=== PATIENT | male | born 1980 | race Caucasian/White ===

== ENCOUNTER 2016-11-17 07:42 | Emergency (ER) | payer BC ==
[2016-11-17 07:57] VITALS: BP 124/81
--- NOTE | 2016-11-17 08:30 | UC ---
Throat Pain/Nasal [place] HPI - HPI Summary HPI Summary: 36 male presents with complaints of sinus pressure and congestion for the past 2 weeks and feels as though it has been worsening. Also admits to some post nasal drip, coughing and headache. Patient states he feels as though the congestion is worse on the left side. He gets sinus infections often. Has not taken any medication other than Ibuprofen. Unknown if he has seasonal allergies. Denies PMHx. Denies fever/chills, sore throat, abdominal pain, nausea /vomiting and chest pain/congestion. - History of Current Complaint Chief Complaint: UCRespiratory Stated Complaint: SINUS COMPLAINT Time Seen by Provider: 11/17/16 08:16 Hx Obtained From: Patient Onset/Duration: Sudden Onset, Lasting Weeks - 2, Still Present, Worse Since Severity: Mild Pain Intensity: 2 Pain Scale Used: 0-10 Numeric Cough: Nonproductive Associated Signs & Symptoms: Positive: Sinus Discomfort, Nasal Discharge - Allergies/Home Medications Allergies/Adverse Reactions: Allergies Allergy/AdvReac Type Severity Reaction Status Date / Time Morphine Allergy Difficulty Verified 11/17/16 07:57 Breathing PMH/Surg Hx/FS Hx/Imm Hx - Additional Past Medical History Additional PMH: Denies HTN, diabetes and asthma. No known PMHx. Other History Of: Negative For: HIV, Hepatitis B, Hepatitis C - Surgical History Surgical History: Yes Surgery Procedure, Year, and Place: Right leg fracture - Family History Known Family History: Positive: None - Social History Alcohol Use: Weekly Substance Use Type: None Smoking Status (MU): Never Smoked Tobacco - Immunization History Most Recent Tetanus Shot: 2008 Vaccination Up to Date: Yes Review of Systems Constitutional: Negative Skin: Negative Eyes: Negative ENT: Nasal Discharge, Other - sinus pressure/congestion Respiratory: Cough Cardiovascular: Negative Gastrointestinal: Negative Neurological: Headache All Other Systems Reviewed And Are Negative: Yes Physical Exam Triage Information Reviewed: Yes Appearance: Well-Appearing - sounds congested upon speaking, No Pain Distress, Well-Nourished Vital Signs: Initial Vital Signs Temp 98.1 F 11/17/16 07:53 Pulse 70 11/17/16 07:53 Resp 14 11/17/16 07:53 BP 124/81 11/17/16 07:53 Pulse Ox 99 11/17/16 07:53 Vital Signs Reviewed: Yes Eyes: Positive: Conjunctiva Clear ENT: Positive: Normal ENT inspection, Hearing grossly normal, Pharynx normal - some post nasal drip noted, Nasal congestion - inflammation, TMs normal. Negative: Nasal drainage, Tonsillar swelling, Tonsillar exudate, Muffled/hoarse voice Dental: Positive: Percussion Tenderness @ - left maxillary > right maxillary. Negative: Gross Decay/Caries @, Cervical Lymphadenopathy Neck: Positive: Supple, Nontender, No Lymphadenopathy Respiratory: Positive: Chest non-tender, Lungs clear, Normal breath sounds, No respiratory distress, No accessory muscle use. Negative: Crackles, Rhonchi, Stridor, Wheezing Cardiovascular: Positive: RRR, No Murmur, Pulses Normal Bowel Sounds: Positive: Present Musculoskeletal: Positive: Strength Intact, ROM Intact Neurological: Positive: Alert Psychological: Positive: Normal Response To Family Skin Exam: Normal Throat Pain/Nasal Course/Dx - Course Course Of Treatment: appears to be suffering from a sinusitis. discussed saline rinses, warm compresses, humidified air, hot showers and antihistamine. will give augmentin and flonase due to length of symptoms. follow up with pcp. return if worsening signs or symptoms. - Differential Dx/Diagnosis Differential Diagnosis/HQI/PQRI: Laryngitis, Otitis Media, Pharyngitis, Sinusitis, URI Provider Diagnoses: Acute Sinusitis Discharge - Discharge Plan Condition: Stable Disposition: HOME Prescriptions: Amoxicillin/Clavulanate TAB* [Augmentin TAB 875*] 875 mg PO BID #20 tab Fluticasone NASAL * [Flonase *] 2 spray BOTH NARES DAILY #1 bottle Patient Education Materials: Sinusitis (ED) Referrals: Dannie Perry MD [Primary Care Provider] - Additional Instructions: Take prescribed antibiotic until entire dose is finished, even if symptoms improve. Recommend taking with food. Use Flonase at bedtime. Also recommend saline nasal rinses to help clear out and moisturize airways. Also recommend taking Claritin or Xyzal, antihistamine to dry up extra mucus. Drink plenty of water, continue Ibuprofen for headache. Warm compresses over sinuses. Use humidifier at bedtime and take hot shower to breathe in steam and loosen congestion. Follow up with PCP. Return if symptoms worsen or do not improve.
== END 2016-11-17 08:35 | disposition home or self-care (01) ==
LOC: UCCORT 07:42
DX: J01.90 Acute sinusitis, unspecified (principal); Z88.5 Allergy status to narcotic agent
CPT/HCPCS: 99212; G0463

== ENCOUNTER 2017-08-06 10:12 | Emergency (ER) | payer BC ==
[2017-08-06 10:44] VITALS: BP 149/87
--- NOTE | 2017-08-06 10:47 | UC ---
Throat Pain/Nasal [place] HPI - HPI Summary HPI Summary: 2 and 1/2 weeks of sinus pain and congestion no fevers no relief with otc medications - History of Current Complaint Chief Complaint: UCRespiratory Stated Complaint: SINUS COMPLAINT Time Seen by Provider: 08/06/17 10:41 Hx Obtained From: Patient Onset/Duration: Gradual Onset, Lasting Weeks - 2 and 1/2, Still Present Severity: Moderate Cough: Nonproductive Associated Signs & Symptoms: Positive: Sinus Discomfort, Nasal Discharge - Allergies/Home Medications Allergies/Adverse Reactions: Allergies Allergy/AdvReac Type Severity Reaction Status Date / Time morphine Allergy Difficulty Verified 08/06/17 10:44 Breathing PMH/Surg Hx/FS Hx/Imm Hx Previously Healthy: Yes Other History Of: Negative For: HIV, Hepatitis B, Hepatitis C - Surgical History Surgical History: Yes Surgery Procedure, Year, and Place: Right leg fracture - Family History Known Family History: Positive: None - Social History Occupation: Employed Full-time Lives: With Family Alcohol Use: Weekly Substance Use Type: None Smoking Status (MU): Never Smoked Tobacco - Immunization History Most Recent Tetanus Shot: 2008 Vaccination Up to Date: Yes Review of Systems Constitutional: Negative Skin: Negative Eyes: Negative ENT: Sore Throat, Ear Ache, Nasal Discharge, Sinus Congestion, Sinus Pain/ Tenderness Respiratory: Cough Cardiovascular: Negative Gastrointestinal: Negative Genitourinary: Negative Motor: Negative Neurovascular: Negative Musculoskeletal: Negative Neurological: Headache Psychological: Negative Is Patient Immunocompromised?: No All Other Systems Reviewed And Are Negative: Yes Physical Exam Triage Information Reviewed: Yes Appearance: Well-Appearing, No Pain Distress, Well-Nourished Vital Signs Reviewed: Yes Eye Exam: Normal Eyes: Positive: Conjunctiva Clear ENT Exam: Normal ENT: Positive: Normal ENT inspection, Hearing grossly normal, Pharynx normal, Nasal congestion, Nasal drainage, TMs normal, Sinus tenderness, Uvula midline. Negative: Tonsillar swelling, Tonsillar exudate, Trismus, Muffled voice, Hoarse voice, Dental tenderness Dental Exam: Normal Neck exam: Normal Neck: Positive: Supple, Nontender, No Lymphadenopathy Respiratory Exam: Normal Respiratory: Positive: Chest non-tender, Lungs clear, Normal breath sounds, No respiratory distress, No accessory muscle use Cardiovascular Exam: Normal Cardiovascular: Positive: RRR, No Murmur, Pulses Normal, Brisk Capillary Refill Musculoskeletal Exam: Normal Musculoskeletal: Positive: Strength Intact, ROM Intact, No Edema Neurological Exam: Normal Neurological: Positive: Alert, Muscle Tone Normal Psychological Exam: Normal Skin Exam: Normal Throat Pain/Nasal Course/Dx - Course Assessment/Plan: augmentin, flonase,tylenol/ibuprofen, increase fluids, follow with pcp - Differential Dx/Diagnosis Provider Diagnoses: Acute rhinosinusitis, elevated blood pressure without history of hypertension Discharge - Discharge Plan Condition: Stable Disposition: HOME Prescriptions: Amoxicillin/Clavulanate TAB* [Augmentin TAB 875*] 875 mg PO BID #20 tab Fluticasone NASAL SPRAY 50MCG* [Flonase NASAL SPRAY 50MCG*] 2 spray BOTH NARES DAILY #1 btl Patient Education Materials: Sinusitis (ED), Hypertension (ED) Referrals: Dannie Perry MD [Primary Care Provider] - 2 Weeks
== END 2017-08-06 11:01 | disposition home or self-care (01) ==
LOC: UCCORT 10:12
DX: J01.90 Acute sinusitis, unspecified (principal); R03.0 Elevated blood-pressure reading, without diagnosis of hypertension
CPT/HCPCS: 99212; G0463

== ENCOUNTER 2019-03-16 17:11 | Emergency (ER) | payer BC ==
--- OUTSIDE RECORDS SUMMARY | 2019-03-16 17:25 | XMS REPORT | Continuity of Care Document ---
:1980 External Reference #:[id number] Author Name Dannie Perry M.D. (transmitted by agent of provider Lory Ramon) Address [address], [place] [address] Care Team Providers Name Role Phone Dannie Perry III, MD - Internal Care Team Information Allergist/Pediatric Pulmonologist Medicine Brayden Dinh MD - Otolaryngology Care Team Information Allergist/Pediatric Pulmonologist Problems Active Problems Provider Date Anxiety state Dannie Perry M.D. 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 Tablets Flonase Allergy 2 puffs each nare Unknown Relief every in the 50mcg/Act morning Suspension Immunizations CPT Code Status Date Vaccine Lot # [id number] Given 04/09/2018 Influenza Virus Vaccine, Quadrivalent, Split, Preservative Free [id number] Given 12/25/2016 Tdap - Tetanus/Diptheria/Acellular Pertussis [id number] Given 03/02/2015 Influenza Virus Vaccine, Quadrivalent, Split, [id number] Preservative Free [id number] Given 06/10/2012 Fluvirin Im 3Yrs And Older [id number] Given 06/08/2008 Tetanus And Diptheria (Td) For Adult Use Preservative Free Vital Signs Date Vital Result Comment 02/10/2019 4:15pm Height 69 inches 5'9" Weight 208.00 lb Heart Rate 85 /min BP Systolic Sitting 134 mmHg BP Diastolic Sitting 86 mmHg BMI (Body Mass Index) 30.7 kg/m2 08/10/2018 12:55pm Height 69 inches 5'9" Weight 211.00 lb Heart Rate 79 /min BP Systolic Sitting 136 mmHg BP Diastolic Sitting 80 mmHg Body Temperature 97.3 F O2 % BldC Oximetry 98 % BMI (Body Mass Index) 31.2 kg/m2 Results Description No Information Available Procedures Description No Information Available Medical Devices Description No Information Available Encounters Description No Information Available Assessments Date Code Description Provider 02/10/2019 R03.0 Elevated blood-pressure reading, without Dannie Perry M.D. diagnosis of hypertension 02/10/2019 R51 Headache Dannie Perry M.D. Plan of Treatment Future Appointment(s):03/22/2019 9:00 am - [facility] Dannie Perry M.D.R03.0 Elevated blood -pressure reading, without diagnosis of hypertensionNew Medication:Amlodipine Besylate 5 mg - 1 by mouth every dayFollow up:1 month with BPs and [id number] HeadacheNew Orders:Overnight Oximetry, Ordered: 02/10/19 Functional Status Description No Information Available Mental Status Description No Information Available Referrals Description No Information Available
[2019-03-16 17:33] VITALS: BP 129/82
[2019-03-16 17:54] LABS: Influenza A Molecular NEGATIVE (Negative); Influenza B Molecular NEGATIVE (Negative)
--- NOTE | 2019-03-16 18:37 | UC ---
FLU HPI - HPI Summary HPI Summary: 38-year-old male who had flulike symptoms with body aches fever and vomiting. Last time he vomited was 11:30 this morning. He has been able to really obtain fluids and food. His children have been sick with the stomach bug recently. - History of Current Complaint Chief Complaint: UCGeneralIllness Stated Complaint: FLU LIKE SYMP Time Seen by Provider: 03/16/19 18:32 Hx Obtained From: Patient Onset/Duration: Sudden Onset Severity Currently: Mild Severity Initially: Mild Pain Intensity: 4 Associated Signs & Symptoms: Positive: Fever - Fever has resolved, Myalgia - Patient had bodyaches base feeling much better., Vomiting - Vomiting has resolved - Allergy/Home Medications Allergies/Adverse Reactions: Allergies Allergy/AdvReac Type Severity Reaction Status Date / Time morphine Allergy Difficulty Verified 03/16/19 17:29 Breathing Home Medications: Home Medications Acetaminophen [Acetaminophen Extra Strength] 1,000 mg PO Q6H PRN 03/16/19 [ History Confirmed 03/16/19] amLODIPine TAB* [Norvasc 5 mg TAB*] 5 mg PO DAILY 03/16/19 [History Confirmed ] PMH/Surg Hx/FS Hx/Imm Hx Previously Healthy: Yes Cardiovascular History: Hypertension Other History Of: Negative For: HIV, Hepatitis B, Hepatitis C - Surgical History Surgical History: Yes Surgery Procedure, Year, and Place: Right Tib/Fib Fracture, 2004, [place] - Family History Known Family History: Positive: None - Social History Occupation: Employed Full-time Lives: With Family Alcohol Use: Weekly Substance Use Type: None Smoking Status (MU): Never Smoked Tobacco - Immunization History Most Recent Tetanus Shot: 2008 Vaccination Up to Date: Yes Review of Systems All Other Systems Reviewed And Are Negative: Yes Constitutional: Positive: Fever, Chills ENT: Positive: Nasal Discharge Gastrointestinal: Positive: Vomiting, Nausea Is Patient Immunocompromised?: No Physical Exam Triage Information Reviewed: Yes Appearance: Well-Appearing, No Pain Distress, Well-Nourished Vital Signs: Initial Vital Signs Temp 99.5 F 03/16/19 17:27 Pulse 134 03/16/19 17:27 Resp 18 03/16/19 17:27 BP 129/82 03/16/19 17:27 Pulse Ox 99 03/16/19 17:27 Vital Signs Reviewed: Yes Eyes: Positive: Conjunctiva Clear ENT: Positive: Hearing grossly normal, Pharynx normal, TMs normal, Uvula midline Neck: Positive: Supple, Nontender, No Lymphadenopathy Respiratory: Positive: Lungs clear, Normal breath sounds, No respiratory distress, No accessory muscle use Cardiovascular: Positive: RRR, No Murmur, Pulses Normal, Brisk Capillary Refill Abdomen Description: Positive: Nontender, No Organomegaly, Soft. Negative: CVA Tenderness (R), CVA Tenderness (L), Distended, Guarding, Hepatomegaly, McBurney' s Point Tenderness, Splenomegaly Bowel Sounds: Positive: Present Musculoskeletal Exam: Normal Neurological Exam: Normal Psychological Exam: Normal Skin Exam: Normal Flu Course/Dx - Course Course Of Treatment: Patient has been comfortable here and is feeling much better. He has taken some fluids and food today and has retained them. His flu tests were negative. - Differential Dx/Diagnosis Provider Diagnosis: Viral illness Discharge ED - Sign-Out/Discharge Documenting (check all that apply): Patient Departure All imaging exams completed and their final reports reviewed: No Studies - Discharge Plan Condition: Good Disposition: HOME Patient Education Materials: Acute Nausea and Vomiting (ED) Referrals: Dannie Perry MD [Primary Care Provider] - Additional Instructions: Increase fluids.Clear liquids today, soup and crackers later today when you have no further vomiting then gradually increase to your regular diet. Avoid spicy or fatty foods today. Definite follow up with your primary care provider if no improvement in 1 day. Go to the ER if you feel like you are going to pass out or if you feel lightheaded or dizzy. - Billing Disposition and Condition Condition: GOOD Disposition: Home - Attestation Statements Provider Attestation: Per institutional requirements, I have reviewed the chart, however, I was not consulted specifically or made aware of this patient by the midlevel provider. I did not personally evaluate, interact with , or disposition this patient.
== END 2019-03-16 19:08 | disposition home or self-care (01) ==
LOC: UCCORT 17:11
DX: B34.9 Viral infection, unspecified (principal); Z88.5 Allergy status to narcotic agent; I10 Essential (primary) hypertension
CPT/HCPCS: 99211; G0463

== ENCOUNTER 2019-07-28 10:53 | Emergency (ER) | payer BC ==
[2019-07-28 13:04] VITALS: BP 140/86
--- NOTE | 2019-07-28 13:46 | UC ---
Pediatric Resp HPI - HPI Summary HPI Summary: 38 -year-old male presents with cough for multiple weeks. He states last month he had a positive influenza testing. He states the cough persisted and over the past couple weeks has been worsening. He denies any fevers or chills. He states the cough is persistent and productive and worse at night. He has had some wheezing for about 3 days he states. No shortness of breath or dyspnea on exertion. He has tried some [id number] medications including fluticasone with little or no relief. He is concerned for bronchitis and his friend has bronchitis currently. Exertion and laying down worsen his cough. Rest improves his cough. - History Of Current Complaint Chief Complaint: UCGeneralIllness Stated Complaint: COUGH Time Seen by Provider: 07/28/19 13:32 - Allergies/Home Medications Allergies/Adverse Reactions: Allergies Allergy/AdvReac Type Severity Reaction Status Date / Time morphine Allergy Difficulty Verified 07/28/19 13:00 Breathing Home Medications: Home Medications amLODIPine TAB* [Norvasc 5 mg TAB*] 5 mg PO DAILY 03/16/19 [History Confirmed ] Amoxicillin/Clavulanate TAB* [Augmentin TAB 875*] 875 mg PO BID #20 tab [Rx] Benzonatate CAP* [Tessalon 100 MG CAP*] 100 mg PO TID PRN #20 cap 07/28/19 [Rx] Dextromethorphan Polistirex [Delsym] 1 dose PO ONCE 07/28/19 [History Confirmed 07/28/19] GuaiFENesin DM 100 mg/10 mg [Robitussin DM 100 mg/10 mg in 5 ml] 1 dose PO ONCE 07/28/19 [History Confirmed 07/28/19] Past Medical History Previously Healthy: Yes - hypertension Respiratory History: No: Hx Asthma, Hx Pneumonia Chronic Illness History: No: Seizures, Diabetes - Surgical History Surgical History: None - Family History Family History of Asthma: No Review Of Systems All Other Systems Reviewed And Are Negative: Yes Constitutional: Positive: Negative Eyes: Positive: Negative ENT: Positive: Negative Cardiovascular: Positive: Negative Respiratory: Positive: Cough, Wheezing Gastrointestinal: Positive: Negative Genitourinary: Positive: Negative Musculoskeletal: Positive: Negative Skin: Positive: Negative Neurological/Mental Status: Positive: Negative Psychological: Positive: Negative Physical Exam Triage Information Reviewed: Yes Vital Signs: Initial Vital Signs Temp 98 F 07/28/19 13:01 Pulse 81 07/28/19 13:01 Resp 14 07/28/19 13:01 BP 140/86 07/28/19 13:01 Pulse Ox 98 07/28/19 13:01 Vital Signs Reviewed: Yes Appearance: Well-Appearing Eyes: Positive: Normal ENT: Positive: Normal ENT inspection, Hearing grossly normal, Pharynx normal, TM dull Neck: Positive: Supple Respiratory: Positive: Chest non-tender, Lungs clear, Normal breath sounds, No respiratory distress Cardiovascular: Positive: Normal, RRR, No Murmur, Pulses Normal Musculoskeletal: Positive: Normal Neurological: Positive: Normal Psychological: Positive: Normal Skin: Negative: Rashes Pediatric Resp Course/Dx - Course Course Of Treatment: appears viral in nature at this time but based on trace of symptoms with antibiotics available. Advised to continue with [id number] medication including flonase and start a cough med and if symptoms persist or worsen start antibiotic. Patient agree to SE of meds and rto prn or go to ED and f/u PCP - Differential Dx/Diagnosis Differential Diagnosis/HQI/PQRI: Pneumonia, Sinusitis, URI Provider Diagnosis: URI (upper respiratory infection) Discharge ED - Sign-Out/Discharge Documenting (check all that apply): Patient Departure All imaging exams completed and their final reports reviewed: No Studies - Discharge Plan Condition: Good Disposition: HOME Prescriptions: Amoxicillin/Clavulanate TAB* [Augmentin TAB 875*] 875 mg PO BID #20 tab Benzonatate CAP* [Tessalon 100 MG CAP*] 100 mg PO TID PRN #20 cap PRN Reason: Cough Patient Education Materials: Upper Respiratory Infection (ED) Referrals: Dannie Perry MD [Primary Care Provider] - 3 Days Additional Instructions: As we discussed Symptoms appear viral in nature at this time. Continue with conservative treatment and we will start a cough suppressant. If symptoms persist or worsen over the next 3 or 4 days and at that time start antibiotics. - Billing Disposition and Condition Condition: GOOD Disposition: Home
== END 2019-07-28 14:04 | disposition home or self-care (01) ==
LOC: UCCORT 10:53
DX: J06.9 Acute upper respiratory infection, unspecified (principal); I10 Essential (primary) hypertension; Z79.899 Other long term (current) drug therapy; Z88.5 Allergy status to narcotic agent
CPT/HCPCS: 99212; G0463